=== PATIENT | male | born 1950 | race Caucasian/White ===

== ENCOUNTER 2018-08-11 03:46 | Emergency (ER) | payer OTHER ==
[~2018-08-11] VITALS: Ht 172.7 cm; Wt 129.3 kg
[2018-08-11 05:36] LABS: Basophils # (auto) 0.1 uL; Monocytes # (auto) 0.9 uL; White Blood Cell 9.4 10^3/uL (4.4-10.8)
[2018-08-11 05:40] LABS: Basophils % (auto) 0.7 % (0.0-2.0); Eosinophils # (auto) 0 uL; Eosinophils % (auto) 0.5 % (0.0-7.0); Lymphocytes # (auto) 1.8 uL; Lymphocytes % (auto) 19.3 % (10.0-50.0); Mean Corpuscular Hemoglobin 28.3 pg (28.0-32.0); Mean Corpuscular Hgb Conc. 33.8 g/dL (32.0-36.0); Mean Corpuscular Volume 83.7 fL (80.0-100.0); Monocytes % (auto) 9.8 % (0.0-12.0); Neutrophils # (auto) 6.6 uL; Neutrophils % (auto) 69.7 % (37.0-80.0); Nucleated Red Blood Cells % 0.4 %; Platelet Count (auto) 167 10^3/uL (140-450); Red Blood Cells 6.73 10^6/uL (4.5-5.90); Red Cell Distribution Width 15.8 % (11.8-14.3)
[2018-08-11 05:46] LABS: Hematocrit 56.3 % (41.0-53.0)
[2018-08-11 05:49] LABS: Prothrombin Time 10.7 sec (9.27-12.13)
[2018-08-11 05:51] LABS: Albumin 3.5 g/dL (3.4-5.0); BUN/Creatinine Ratio 17.8; Potassium 3.7 mmol/L (3.5-5.1)
[2018-08-11 05:56] LABS: Bilirubin, Total 0.7 mg/dL (0.2-1.0); Total Protein 7.7 g/dL (6.4-8.2)
[2018-08-11] MEDS ORDERED: SODIUM CHLORIDE 0.9% 500 ML IV ONE (07:00)
[2018-08-11] MEDS ORDERED: ASPirin 81 mg TAB PO ONE (07:00)
[2018-08-11 07:24] VITALS: BP 119/68
== END 2018-08-11 07:35 | disposition home or self-care (01) ==
LOC: ER 03:46
DX: R07.89 Other chest pain (principal); E86.0 Dehydration; E11.9 Type 2 diabetes mellitus without complications; I10 Essential (primary) hypertension
CPT/HCPCS: 36415; 71046; 80053; 84484; 85025; 85610; 85730; 93005; 99285; J7040

== ENCOUNTER 2019-06-13 21:10 | Emergency (ER) | payer OTHER ==
[~2019-06-13] VITALS: Ht 172.7 cm; Wt 122.5 kg
[2019-06-13 22:33] LABS: Basophils # (auto) 0.1 uL; Eosinophils # (auto) 0 uL; Nucleated Red Blood Cells % 0.1 %
[2019-06-13 22:35] LABS: Basophils % (auto) 0.7 % (0.0-2.0); Hematocrit 54.3 % (41.0-53.0); Hemoglobin 18.1 g/dL (13.5-17.5); Lymphocytes # (auto) 1.5 uL; Lymphocytes % (auto) 8.2 % (10.0-50.0); Mean Corpuscular Hgb Conc. 33.4 g/dL (32.0-36.0); Mean Corpuscular Volume 83.7 fL (80.0-100.0); Monocytes # (auto) 1.6 uL; Monocytes % (auto) 9.2 % (0.0-12.0); Neutrophils # (auto) 14.5 uL; Neutrophils % (auto) 81.9 % (37.0-80.0); Platelet Count (auto) 174 10^3/uL (140-450); Red Blood Cells 6.49 10^6/uL (4.5-5.90); Red Cell Distribution Width 14.6 % (11.8-14.3); White Blood Cell 17.7 10^3/uL (4.4-10.8)
[2019-06-13 22:50] LABS: Albumin 3.7 g/dL (3.4-5.0); BUN/Creatinine Ratio 13.3; Calcium 9.2 mg/dL (8.5-10.1)
[2019-06-13 22:52] LABS: Bilirubin, Total 1.1 mg/dL (0.2-1.0)
[2019-06-13 23:21] LABS: Urine Bacteria MOD /hpf (None Seen); Urine Blood 2+ /uL (Negative); Urine Specific Gravity 1.018 (1.001-1.035); Urine WBC 176 /hpf (0 - 3)
[2019-06-14 06:35] VITALS: BP 155/86
== END 2019-06-14 08:59 | disposition home or self-care (01) ==
LOC: ER 21:10
DX: N39.0 Urinary tract infection, site not specified (principal); N40.1 Benign prostatic hyperplasia with lower urinary tract symptoms; N13.8 Other obstructive and reflux uropathy; E11.9 Type 2 diabetes mellitus without complications; I10 Essential (primary) hypertension
CPT/HCPCS: 36415; 51702; 74176; 80053; 81001; 83605; 85025; 87086; 87088; 87186